=== PATIENT | female | born 1995 | race Hispanic/Latino ===

== ENCOUNTER 2019-09-03 10:47 | Emergency (ER) | payer OTHER ==
[~2019-09-03] VITALS: Ht 165.1 cm; Wt 108.9 kg
[2019-09-03] MEDS ORDERED: DIAZEPAM 2 MG TAB PO ONE (11:45)
[2019-09-03] MEDS ORDERED: KETOROLAC TROMETHAMINE 60 MG/2 ML VIAL IM ONE (11:45)
[2019-09-03 13:17] LABS: CLARITY,URINE CLOUDY (CLEAR); COLOR,URINE YELLOW (YELLOW); LEUKOCYTE ESTERASE ,URINE 1+ (NEGATIVE); NITRITE,URINE POSITIVE (NEGATIVE); PREGNANCY TEST, URINE NEGATIVE (NEGATIVE)
[2019-09-03 13:18] LABS: BILIRUBIN,URINE NEGATIVE (NEGATIVE); KETONES,URINE NEGATIVE (NEGATIVE); PROTEIN,URINE DIPSTICK NEGATIVE (NEGATIVE); URINE UROBILINOGEN 0.2 mg/dL (0.2 - 1)
[2019-09-03 13:25] LABS: BACTERIA,URINE MANY /HPF; EPITHELIAL CELLS,URINE MODERATE /LPF; RBC,URINE 0-5 /HPF (0-5)
--- NOTE | 2019-09-03 13:36 | Diagnostic Imaging Report ---
EXAMINATION: SP LUMBAR, COMPLETE MIN 4VW INDICATION: Back pain COMPARISON: None FINDINGS: No acute fracture. Vertebral body heights are well-maintained. Alignment is anatomic. A substantial degenerative change. Nonacute the bowel gas pattern. No free air. IMPRESSION: No acute osseous injury. Normal lumbar spine alignment. Signed by: Cheko Barrett MD on 09/03/2019 1:33 PM
[2019-09-03] MEDS ORDERED: NAPROXEN250 MG PO (14:16)
[2019-09-03] MEDS ORDERED: KEFLEX500 MG PO (14:16)
[2019-09-03] MEDS ORDERED: ROBAXIN-750750 MG PO (14:16)
== END 2019-09-03 14:41 | disposition home or self-care (01) ==
LOC: ER 10:47
DX: M54.5 Low back pain (principal); M62.830 Muscle spasm of back; N30.91 Cystitis, unspecified with hematuria; X50.0XXA Overexertion from strenuous movement or load, initial encounter; Y93.B9 Activity, other involving muscle strengthening exercises; Y92.008 Other place in unspecified non-institutional (private) residence as the place of occurrence of the external cause
CPT/HCPCS: 72110; 81001; 81025; 99284; J1885

== ENCOUNTER 2021-01-02 11:13 | Emergency (ER) | payer OTHER ==
[~2021-01-02] VITALS: Ht 165.1 cm; Wt 99.8 kg
[~2021-01-02 11:13] MED LIST: KEFLEX500 MG PO; NAPROXEN250 MG PO; ROBAXIN-750750 MG PO
[2021-01-02] MEDS ORDERED: CASIRIVIMAB/IMDEVIMAB 10 ML in SODIUM CHLORIDE 0.9% 100 ML IV ONE (11:30)
[2021-01-02] MEDS ORDERED: OBREDON 2.5-20118 ML PO (13:02)
== END 2021-01-02 13:56 | disposition home or self-care (01) ==
LOC: ER 11:22
DX: U07.1 COVID-19 (principal); R06.02 Shortness of breath; R05 Cough
CPT/HCPCS: 71045; 99283; J7050